=== PATIENT | male | born 1990 | race Caucasian/White ===

== ENCOUNTER 2021-08-21 13:39 | Inpatient (IN) | payer OTHER ==
[2021-08-21] MEDS ORDERED: LORazepam 2 MG/ML SDV VIAL IVPUSH ONE ×2 (14:43→21:32)
[2021-08-21] MEDS ORDERED: SODIUM CHLORIDE 1,000 ML IV STA (15:01)
[2021-08-21] MEDS ORDERED: FOLIC ACID INJECTION - 1 MG, THIAMINE HCL 100 MG, MULTIVIT INJECTION ADULT 10 ML in SOD... IVPB ONE (15:01)
[2021-08-21] MEDS ORDERED: ONDANSETRON 4 MG/2 ML VIAL IVPUSH ONE ×2 (16:05→21:33)
[2021-08-21] MEDS ORDERED: ONDANSETRON 4 MG/2 ML VIAL ONE (16:08)
[2021-08-21] MEDS ORDERED: LORazepam 1 MG TABLET PO PRN ×2 (16:24→18:11)
[2021-08-21 16:31] LABS: BASO % 1.1 % (0-2.0); EOS % 0.2 % (0-4.5); HEMATOCRIT 35.5 % (35.4-49); HEMOGLOBIN 11.7 GM/dL (11.7-16.9); LYMPH % 30.4 % (8-40); MCH 23.6 pg (25.7-33.7); MCHC 32.9 g/dl (32.0-35.9); MEAN CELL VOLUME 71.8 fl (80-96); MEAN PLT VOLUME 7.1 fl (7.5-11.1); MONO % 4.9 % (3.8-10.2); NEUT % 63.4 % (42.8-82.8); PLATELET COUNT 230 10^3/uL (134-434); RBC 4.94 M/mm3 (4.00-5.60); RDW 23.5 % (11.9-15.9); WHITE BLOOD COUNT 3.3 K/mm3 (4.0-10.0)
[2021-08-21 16:39] LABS: CALCIUM 8.6 mg/dL (8.5-10.1)
[2021-08-21 16:40] LABS: BLOOD UREA NITROGEN 7.8 mg/dL (7-18); MAGNESIUM 2.1 mg/dL (1.8-2.4)
[2021-08-21 16:43] LABS: CREATININE 0.8 mg/dL (0.55-1.3); PHOSPHOROUS 3.5 mg/dL (2.5-4.9)
[2021-08-21 16:44] LABS: BILIRUBIN,TOTAL 0.7 mg/dL (0.2-1); TOT PROT 8.3 g/dl (6.4-8.2)
[2021-08-21] MEDS ORDERED: LORazepam 1 MG TABLET PO SCH (17:00)
[2021-08-21] MEDS ORDERED: LORazepam 1 MG TABLET ONE (17:00)
[2021-08-21 17:12] LABS: ANISOCYTOSIS 3+; MACROCYTOSIS 2+
[2021-08-21] MEDS ORDERED: LORazepam 2 MG/ML SDV VIAL IVPUSH PRN (17:19)
[2021-08-21] MEDS ORDERED: FAMOTIDINE 20 MG/50 ML IVPB 20 MG/50 ML MG IVPB ONE (17:21)
[2021-08-21] MEDS ORDERED: MAG HYDROX/AL HYDROX/SIMETH 30 ML UNIT-DOSE CUP PO PRN (17:30)
[2021-08-21] MEDS ORDERED: FAMOTIDINE 10 MG/ML VIAL IVPB ONE (17:39)
[2021-08-21] MEDS ORDERED: LORazepam 1 MG TABLET PO ONE (19:00)
[2021-08-21 19:50] LABS: URINE APPEARANCE CLEAR; URINE BILIRUBIN NEGATIVE (NEGATIVE); URINE COLOR YELLOW; URINE GLUCOSE (UA) NEGATIVE (NEGATIVE); URINE KETONE 1+ (NEGATIVE); URINE LEUK ESTERASE NEGATIVE (NEGATIVE); URINE NITRITE NEGATIVE (NEGATIVE); URINE PROTEIN NEGATIVE (NEGATIVE)
[2021-08-21 19:59] LABS: COCAINE, UR NEGATIVE (NEGATIVE); OPIATES, URI NEGATIVE (NEGATIVE); PHENCYCLIDINE,URINE NEGATIVE (NEGATIVE)
[2021-08-21 20:09] LABS: METHADONE, UR NEGATIVE (NEGATIVE); URINE AMPHETAMINES NEGATIVE (NEGATIVE); URINE BARBITURATES POSITIVE (NEGATIVE); URINE BENZODIAZEPINES POSITIVE (NEGATIVE)
[2021-08-21] MEDS: THIAMINE HCL 200 MG/2 ML VIAL IVPB SCH (21:41)
[2021-08-21] MEDS: LORazepam 1 MG TABLET PO SCH (23:11)
[2021-08-22] MEDS ORDERED: hydrOXYzine PAMOATE 25 MG CAPSULE (FP) PO ONE (00:02)
[2021-08-22] MEDS ORDERED: LORazepam 2 MG/ML SDV VIAL IM PRN (01:50)
[2021-08-22 02:44] VITALS: BMI 25.2
[2021-08-22] MEDS: LORazepam 1 MG TABLET PO SCH ×4 (06:03→22:37)
[2021-08-22 07:13] LABS: BASO % 0.6 % (0-2.0); EOS % 0.7 % (0-4.5); HEMATOCRIT 31.7 % (35.4-49); HEMOGLOBIN 10.6 GM/dL (11.7-16.9); LYMPH % 28.8 % (8-40); MCH 24.3 pg (25.7-33.7); MCHC 33.5 g/dl (32.0-35.9); MEAN CELL VOLUME 72.6 fl (80-96); MEAN PLT VOLUME 7.3 fl (7.5-11.1); MONO % 5.9 % (3.8-10.2); PLATELET COUNT 184 10^3/uL (134-434); RBC 4.37 M/mm3 (4.00-5.60); RDW 22.8 % (11.9-15.9); WHITE BLOOD COUNT 3.5 K/mm3 (4.0-10.0)
[2021-08-22 07:37] LABS: ALBUMIN 3.7 g/dl (3.4-5.0); CALCIUM 8.6 mg/dL (8.5-10.1); MAGNESIUM 1.7 mg/dL (1.8-2.4)
[2021-08-22 07:38] LABS: BLOOD UREA NITROGEN 5.5 mg/dL (7-18)
[2021-08-22 07:40] LABS: CREATININE 0.8 mg/dL (0.55-1.3); PHOSPHOROUS 3.1 mg/dL (2.5-4.9)
[2021-08-22 07:42] LABS: BILIRUBIN,TOTAL 1.5 mg/dL (0.2-1); TOT PROT 7.6 g/dl (6.4-8.2)
[2021-08-22] MEDS: MAGNESIUM SULF 50% (8.12 MEQ/2 ML-1 GM VIAL) IVPB ONE ×2 (09:07→09:15)
[2021-08-22] MEDS ORDERED: MAGNESIUM OXIDE 400 MG TABLET (FP) PO ONE ×2 (09:32→13:30)
[2021-08-22] MEDS ORDERED: THIAMINE HCL 100 MG TABLET (FP) PO SCH (10:00)
[2021-08-22] MEDS ORDERED: PRENATAL VITAMINS W/ FOLIC ACID TABLET (FP) PO SCH (10:00)
[2021-08-22] MEDS ORDERED: ENOXAPARIN NA (PORCINE) 40 MG/0.4 ML DISP.SYRIN SQ SCH (10:00)
[2021-08-22] MEDS ORDERED: PANTOPRAZOLE 40 MG TABLET PO SCH (10:00)
[2021-08-22] MEDS ORDERED: FOLIC ACID 1 MG TABLET (FP) PO SCH (10:00)
[2021-08-22] MEDS ORDERED: LORazepam 2 MG/ML SDV VIAL IM ONE (10:07)
[2021-08-22] MEDS: THIAMINE HCL 200 MG/2 ML VIAL IVPB SCH ×2 (11:32→21:21)
[2021-08-22] MEDS ORDERED: busPIRone HCL 10 MG TABLET (FP) PO SCH (14:00)
[2021-08-22] MEDS ORDERED: hydrOXYzine PAMOATE 50 MG CAPSULE (FP) PO SCH (14:00)
[2021-08-22] MEDS ORDERED: MAG HYDROX/AL HYDROX/SIMETH 30 ML UNIT-DOSE CUP PO PRN (16:46)
[2021-08-22] MEDS ORDERED: LORazepam 1 MG TABLET PO PRN (16:46)
[2021-08-22] MEDS: busPIRone HCL 10 MG TABLET (FP) PO SCH (21:20)
[2021-08-22] MEDS: hydrOXYzine PAMOATE 50 MG CAPSULE (FP) PO SCH (21:20)
[2021-08-22] MEDS ORDERED: traZODone HCL 100 MG TABLET (FP) PO SCH ×2 (22:00)
[2021-08-23] MEDS ORDERED: LORazepam 1 MG TABLET PO SCH ×2 (05:00)
[2021-08-23] MEDS: LORazepam 1 MG TABLET PO SCH ×2 (06:02→10:58)
[2021-08-23] MEDS: busPIRone HCL 10 MG TABLET (FP) PO SCH (06:02)
[2021-08-23] MEDS: hydrOXYzine PAMOATE 50 MG CAPSULE (FP) PO SCH (06:03)
[2021-08-23] MEDS ORDERED: ENOXAPARIN NA (PORCINE) 40 MG/0.4 ML DISP.SYRIN SQ SCH (10:00)
[2021-08-23] MEDS ORDERED: PRENATAL VITAMINS W/ FOLIC ACID TABLET (FP) PO SCH (10:00)
[2021-08-23] MEDS ORDERED: PANTOPRAZOLE 40 MG TABLET PO SCH (10:00)
[2021-08-23] MEDS: THIAMINE HCL 200 MG/2 ML VIAL IVPB SCH (10:40)
[2021-08-23 10:52] VITALS: BP 118/64; PULSE 88; TEMP 96.8
[2021-08-24] MEDS ORDERED: LORazepam 0.5 MG TABLET PO PRN ×3
[2021-08-24] MEDS ORDERED: LORazepam 0.5 MG TABLET PO SCH ×3 (05:00)
[2021-08-25] MEDS ORDERED: LORazepam 0.5 MG TABLET PO ONE ×3 (05:00)
== END 2021-08-23 14:00 | disposition left against medical advice (07) | DRG 770 ==
LOC: JER 13:39 → JERBED 16:51 → J4W 20:26 → J6S 08-22 16:33
PROVIDERS: ADMIT Internal Medicine; ATTEND Internal Medicine
DX: F10.230 Alcohol dependence with withdrawal, uncomplicated (principal); F32.2 Major depressive disorder, single episode, severe without psychotic features; F41.9 Anxiety disorder, unspecified; Z91.51 Personal history of suicidal behavior; R79.89 Other specified abnormal findings of blood chemistry; R11.2 Nausea with vomiting, unspecified; Z86.16 Personal history of COVID-19; Z53.29 Procedure and treatment not carried out because of patient's decision for other reasons
CPT/HCPCS: 36415; 80053; 80307; 81003; 83735; 84100; 85025; 93005; 93010; 99285-25; C9803-CS; U0003; U0005